=== PATIENT | female | born 1950 | race Caucasian/White ===

== ENCOUNTER 2017-08-14 02:55 | Outpatient (CLI) | payer BC ==
[~2017-08-14 02:55] MED LIST: AZEL30SP BOTHNARES
== END 2017-08-14 23:59 | disposition home or self-care (01) ==
LOC: DIABETIC 02:55
PROVIDERS: ATTEND General Practice
DX: K58.9 Irritable bowel syndrome, unspecified (principal)
CPT/HCPCS: G0108